=== PATIENT | male | born 1960 | race Caucasian/White ===

== ENCOUNTER 2016-10-06 10:46 | Day surgery (SDC) | payer BC ==
[~2016-10-06] VITALS: Ht 180.3 cm; Wt 75.0 kg
[2016-10-06] MEDS ORDERED: ASPI81CH CHEW (11:32)
[2016-10-06] MEDS ORDERED: CARV3.12 PO (11:32)
[2016-10-06] MEDS ORDERED: ATOR40TA16 PO (11:32)
[2016-10-06] MEDS ORDERED: ISOS30TA3 PO (11:32)
[2016-10-06] MEDS ORDERED: NITR1SUB3 SL (11:32)
[2016-10-06] MEDS ORDERED: SILD20TA11 PO (11:32)
[2016-10-06 11:34] VITALS: BP 121/73; PULSE 67; RESP 18; TEMP 97.8; O2SAT 100
[2016-10-06 11:48] LABS: AUTOMATED NEUTROPHIL # 9.3 TH/MM3 (1.8-7.7); BASOPHIL # 0.1 TH/MM3 (0-0.2); BASOPHIL % 0.6 % (0.0-2.0); EOSINOPHIL # 0.4 TH/MM3 (0-0.4); EOSINOPHIL % 3.4 % (0.0-4.0); HEMATOCRIT 41.1 % (39.0-51.0); HEMO FLAGS DIFF FINAL; LYMPH % 17.1 % (9.0-44.0); LYMPHOCYTE # 2.2 TH/MM3 (1.0-4.8); MEAN CELL VOLUME 89.2 FL (80.0-100.0); MEAN CORPUSCULAR HEMOGLOBIN 30.4 PG (27.0-34.0); MEAN CORPUSCULAR HGB CONC 34.1 % (32.0-36.0); MONO % 5.5 % (0.0-8.0); NEUT % 73.4 % (16.0-70.0); PLATELET COUNT 309 TH/MM3 (150-450); RED BLOOD COUNT 4.61 MIL/MM3 (4.50-5.90); RED CELL DISTRIBUTION WIDTH 14.1 % (11.6-17.2); WHITE BLOOD COUNT 12.7 TH/MM3 (4.0-11.0)
[2016-10-06 12:01] LABS: APTT (PATIENT) 27.8 SEC (24.3-30.1); PROTHROMBIN TIME - PATIENT 10.6 SEC (9.8-11.6)
[2016-10-06 12:09] LABS: BICARBONATE 28.1 MEQ/L (21.0-32.0)
[2016-10-06] MEDS ORDERED: HEPARIN-NS/PF INJ 500 ML ONE (14:56)
[2016-10-06] MEDS ORDERED: MIDAZOLAM HCL 2 MG/2 ML VIAL ONE (14:56)
[2016-10-06] MEDS ORDERED: NITROGLYCERIN INJ 5 ML ONE (14:56)
[2016-10-06] MEDS ORDERED: IOHEXOL 350 MG/ML 100 ML BTL (for Cath Lab) OTHER ONE (15:45)
[2016-10-06] MEDS ORDERED: SODIUM CHLOR 0.9% 1000 ML INJ 500 ML IV SCH (16:14)
[2016-10-06 17:03] LABS: HDL CHOLESTEROL 43.3 MG/DL (40.0-60.0)
--- NOTE | 2016-10-07 16:18 | EKG ---
Date Performed: 10/06/2016 Time Performed: 11:40:42 PTAGE: 55 years EKG: Sinus rhythm Incomplete RBBB Anterolateral ST elevation - possible early repolarization Compared to prior tracing no significant change Borderline ECG PREVIOUS TRACING : 08/23/2016 11.18 DOCTOR: Hitesh Quintero Interpretating Date/Time 10/07/2016 16:17:20
--- NOTE | 2016-10-12 18:00 | MR ---
cc: LAYNE TAM MD DATE 10/12/16 INDICATIONS Unstable angina, class III angina, intermediate probability nuclear myocardial perfusion study. The patient is on two antianginal medications. PROCEDURE PERFORMED. Retrograde left heart catheterization with left ventriculography and selective coronary angiography. EXIT SITE Right femoral artery. EQUIPMENT USED 5 inch pigtail catheter, 5 inch JL 4 and AR modified coronary catheters. MEDICATIONS 1. IV Versed 2. IV Fentanyl CONTRAST Omnipaque 80 cc ALLERGIES None. METHOD OF HEMOSTASIS Manual compression RESULTS HEMODYNAMICS Heart rate 60 beats per minute. Left ventricular end diastolic pressure 10 mmHg, LV 95/10, aorta 95/62/80, Left ventricular ejection fraction: 60%, wall motion normal, no mitral regurgitation. CORONARY ANGIOGRAPHY Left main coronary artery patent. Left anterior descending artery has 20% stenosis in the mid portion distally to the first septal branch. First diagonal artery is a large vessel which is patent. Second diagonal artery is patent. Left circumflex artery patent. OM1 patent. OM2 patent. Left PDA patent. Right coronary artery is a co-dominant vessel which is patent. PDA patent. Very small PLV patent. DIAGNOSES 1. Mild nonobstructive coronary artery disease 2. Well preserved left ventricular systolic function DISPOSITION Mr. Bazzi can be reassured about his cardiac status. His study revealed mild nonobstructive coronary artery disease and well preserved left ventricular systolic function. We will continue his current medical program including aggressive modification of his cardiac risk factors. He will be discharged later today. I will see him back in followup in our office after discharge. MD MINA Hsu/ /3:57 PM /5:49 PM DEB
== END 2016-10-06 19:12 | disposition home or self-care (01) ==
LOC: HDOC 10:46 → HDIC 10:47 → HDOC 19:12
PROVIDERS: ATTEND Internal Medicine Interventional Cardiology
DX: I25.110 Atherosclerotic heart disease of native coronary artery with unstable angina pectoris (principal); Z79.82 Long term (current) use of aspirin
CPT/HCPCS: 80048; 80061; 85025; 85610; 85730; 93005; 93458; C1769; C1893; J1644; J2250; J3010; Q9967